=== PATIENT | male | born 1985 | race African-American/Black ===

== ENCOUNTER 2021-10-15 11:38 | Emergency (ER) | payer BC ==
[2021-10-15] MEDS ORDERED: HYDROcodone/Acetaminophen 5/325 mg Tablet ONE (12:59)
[2021-10-15] MEDS ORDERED: Ketorolac Tromethamine 30 MG/ML VIAL ONE (12:59)
== END 2021-10-15 13:01 | disposition home or self-care (01) ==
LOC: CSHERS 11:38
DX: K04.7 Periapical abscess without sinus (principal); Z87.891 Personal history of nicotine dependence
CPT/HCPCS: 96372; 99283; J1885